=== PATIENT | female | born 2000 | race Hispanic/Latino ===

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

== ENCOUNTER → 2019-01-11 | Outpatient (CLI) | payer BC | LOC: RESP 15:06 | PROVIDERS: ATTEND Family Medicine | DX: R00.2 Palpitations (principal) ==